=== PATIENT | female | born 1965 | race Two or more races ===

== ENCOUNTER 2017-05-29 11:02 | Inpatient (IN) | payer MEDICARE, OTHER ==
--- NOTE | 2017-05-29 11:17 | C.PDOC ---
History Of Present Illness 51 y/o female with PMHx of IDDM presents to the ER complaining of pain, swelling , redness to right thumb that gradually developed over the last 2 weeks after sustaining puncture injury. Otherwise, Patient denies fever, chills, headache, dizziness, CP, SOB, dsypnea, palpitation, abd. pain, V/D, denies weakness, sensory or vascular deficits to Right hand. Ambulate to Ed for evaluation, not in any apparent distress. Time Seen by Provider: 05/29/17 11:15 Chief Complaint (Nursing): Finger,Hand,&Wrist History Per: Patient History/Exam Limitations: no limitations Onset/Duration Of Symptoms: Days Current Symptoms Are (Timing): Still Present Severity: Moderate Past Medical History Reviewed: Historical Data, Nursing Documentation, Vital Signs Vital Signs: Last Vital Signs Temp 99.2 F 05/29/17 15:24 Pulse 86 05/29/17 15:24 Resp 20 05/29/17 15:24 BP 123/69 05/29/17 15:24 Pulse Ox 98 05/29/17 15:24 - Medical History PMH: Anxiety, Depression, Diabetes, HTN, Hypercholesterolemia, Schizophrenia Denies: Hepatitis, HIV, Chronic Kidney Disease, Seizures, Sexually Transmitted Disease Surgical History: No Surg Hx - [facility] Procedures ENDO RECTUM POLYPECTOMY (06/26/14) Family History: States: No Known Family Hx - Social History Hx Tobacco Use: Yes Hx Alcohol Use: Yes (SOCIALLY) Hx Substance Use: No - Immunization History Hx Tetanus Toxoid Vaccination: No Hx Influenza Vaccination: No Hx Pneumococcal Vaccination: No Review Of Systems Except As Marked, All Systems Reviewed And Found Negative. Constitutional: Positive for: Chills. Negative for: Fever Skin: Positive for: Bruising (right thumb) Neurological: Negative for: Weakness, Numbness Physical Exam - Physical Exam Appears: Non-toxic, No Acute Distress Skin: Normal Color, Warm Head: Normacephalic Eye(s): bilateral: PERRL Nose: No Flaring Oral Mucosa: Moist Throat: No Erythema, No Drooling Neck: Trachea Midline, Supple Chest: Symmetrical Cardiovascular: Rhythm Regular Respiratory: No Accessory Muscle Use, No Stridor, No Wheezing Gastrointestinal/Abdominal: Soft, No Tenderness, No Distention, No Guarding Extremity: Normal ROM (Right hand), Pedal Edema (right first distal phalanx), Capillary Refill (less than 2sec to Right hand), No Deformity, Other (Right thumb diffuse edema, erythema with flactulance over palmar aspect 1st distal pahlanx, (+) purulent material noted. Proximal streakinig extend to Right 1st MCPJ to dorsal asepct Right hand.) Neurological/Psych: Oriented x3, Normal Speech, Normal Cognition, Normal Motor, Normal Sensation, Normal Reflexes ED Course And Treatment - Laboratory Results Result Diagrams: 05/29/17 12:06 05/29/17 12:06 Lab Interpretation: Abnormal O2 Sat by Pulse Oximetry: 98 (RA) Pulse Ox Interpretation: Normal - Other Rad Right hand X-Ray: Viewed By Me, Read By Radiologist Interpretation: PROCEDURE: Right Thumb radiographs. HISTORY: injury, pain r/ o osteo and fx. COMPARISON: None. TECHNIQUE: AP radiograph of the right hand , as well as spot oblique and lateral images of thumb were obtained. FINDINGS: RIGHT THUMB: There is no acute displaced fracture or bone destruction. Remainder of the right hand (as seen on the AP view) grossly unremarkable. JOINTS: Normal. SOFT TISSUES: There is moderate soft tissue swelling in the thumb. OTHER FINDINGS: None. IMPRESSION: Moderate soft tissue swelling in the thumb. No acute fracture or bone destruction. Please note if there is a persistent clinical concern, an MRI may be performed to exclude early osteomyelitis. Progress Note: Pt remained stable during the ED evaluiation. Blood wor review and appears abnoraml, mild leukocytosis with left shift, hypeglycemia. UA (+) ketones. results review with patient and admission offered for further evaluation and tx, pt agrees. Case discussed with med-on-call and admission arranged. Hand surgery notifieda bout consult. marketing services vice president notified about consult and eval pt in ED. Medical Decision Making Medical Decision Making: Impression: [place] in right thumb Plan: --Labs --Urinalysis -- X-Ray - Hand Right Thumb --IV Fluids Disposition - Disposition Disposition: HOSPITALIZED Disposition Time: 13:20 Condition: STABLE - Clinical Impression Clinical Impression: Hyperglycemia due to type 2 diabetes mellitus, Finger pulp abscess, Cellulitis - PA / BOTTOM P[employer] / Resident Statement MD/DO has reviewed & agrees with the documentation as recorded. - Scribe Statement The provider has reviewed the documentation as recorded by the Scribe Summen Ramírez All medical record entries made by the Lincoln were at my direction and personally dictated by me. I have reviewed the chart and agree that the record accurately reflects my personal performance of the history, physical exam, medical decision making, and the department course for this patient. I have also personally directed, reviewed, and agree with the discharge instructions and disposition.
[2017-05-29] MEDS ORDERED: Piperacillin/Tazobact 3.375 GM in Sodium Chloride 100 ML IVPB STA (11:51)
[2017-05-29] MEDS ORDERED: Piperacill/Tazo 3.375gm in Dex 3.375 GM/50 ML BAG IVPB ONE (12:00)
[2017-05-29 12:16] LABS: BASO % 0.2 % (0.0-2.0); HEMATOCRIT 50.3 % (34.0-47.0); LYMPH # 1.1 K/uL (1.0-4.3); LYMPH % 6.3 % (20.0-40.0); MEAN CELL VOLUME 92.7 fL (81.0-99.0); MEAN CORPUSCULAR HEMOGLOBIN 31.6 pg (27.0-31.0); MEAN CORPUSCULAR HGB CONC 34.1 g/dL (33.0-37.0); MEAN PLATELET VOLUME 8.8 fL (7.2-11.7); MONO # 1.3 K/uL (0.0-0.8); MONO % 6.9 % (0.0-10.0); PLATELET COUNT 277 K/uL (130-400); RED CELL DISTRIBUTION WIDTH 13.2 % (11.5-14.5); WHITE BLOOD COUNT 18.1 K/uL (4.8-10.8)
[2017-05-29 12:19] LABS: INR 1.1
--- NOTE | 2017-05-29 12:20 | RAD ---
PROCEDURE: Right Thumb radiographs. HISTORY: injury, pain r/o osteo and fx COMPARISON: None. TECHNIQUE: AP radiograph of the right hand, as well as spot oblique and lateral images of thumb were obtained. FINDINGS: RIGHT THUMB: There is no acute displaced fracture or bone destruction. Remainder of the right hand (as seen on the AP view) grossly unremarkable. JOINTS: Normal. SOFT TISSUES: There is moderate soft tissue swelling in the thumb. OTHER FINDINGS: None. IMPRESSION: Moderate soft tissue swelling in the thumb. No acute fracture or bone destruction. Please note if there is a persistent clinical concern, an MRI may be performed to exclude early osteomyelitis.
[2017-05-29 12:35] LABS: LARGE PLATELETS PRESENT; NEUTROPHIL 90 % (50-75); TOTAL CELLS COUNTED 100
[2017-05-29 12:40] LABS: RBC URINE 3 /hpf (0-3); URINE BACTERIA RARE (<OCC); URINE BILIRUBIN NEGATIVE (NEGATIVE); URINE BLOOD NEGATIVE (NEGATIVE); URINE COLOR Yellow (YELLOW); URINE GLUCOSE (UA) 3+ mg/dL (Normal); URINE KETONE 2+ mg/dL (NEGATIVE); URINE LEUKOCYTE ESTERASE NEG Leu/uL (Negative); URINE PROTEIN 1+ mg/dL (NEGATIVE); URINE UROBILINOGEN NORMAL mg/dL (0.2-1.0); WBC URINE 2 /hpf (0-5)
[2017-05-29 12:42] LABS: ALB/GLOB RATIO 1.3 (1.0-2.1); ALKALINE PHOSPHATASE 104 U/L (38-126); ALT/SGPT 21 U/L (9-52); AST/SGOT 12 U/L (14-36); BILIRUBIN,TOTAL 0.8 mg/dL (0.2-1.3); BLOOD UREA NITROGEN 13 mg/dL (7-17); CALCIUM 9.4 mg/dl (8.6-10.4); CARBON DIOXIDE 20 mmol/L (22-30); CHLORIDE 96 mmol/L (98-107); GFR AFRICAN-AMERICAN > 60; GLUCOSE,RANDOM 427 mg/dL (65-105); SODIUM 132 mmol/L (132-148)
[2017-05-29] MEDS ORDERED: Vancomycin 1 GM in Sodium Chloride 0.9% 200 ML IVPB ONE (13:00)
[2017-05-29] MEDS ORDERED: Sodium Chloride 0.9% 1,000 ML IV ONE ×2 (13:16→16:52)
[2017-05-29] MEDS ORDERED: Potassium Chloride 20 mEq ER Tab PO ONE (14:02)
[2017-05-29] MEDS ORDERED: Lidocaine 2% w Epi 1:100,000 Inj IJ ONE (14:42)
[2017-05-29] MEDS ORDERED: Lidocaine 2% w Epi 1:100,000 Inj IJ STA (15:26)
[2017-05-29 15:27] VITALS: RESP 20
--- NOTE | 2017-05-29 15:29 | CP.PCM.CON ---
History of Present Illness - History of Present Illness History of Present Illness: Plastic Surgery Consult for Dr. Boo This patient is a 51F with DM and HTN who presents with 5 days of finger pain after she jammed her right first digit in the faucet when she was cleaning. She reports that her finger became increasing swollen and red since that time with drainiage. She denies any fevers or chills at home. She denies any loss of senasation however admits to decreaed range of motion about the distal interphalangeal joint. PMH: See above PSH: Social Denies etoh, tobacco, drugs Review of Systems - Review of Systems All systems: reviewed and no additional remarkable complaints except - Musculoskeletal Additional comments: [place] and drainage of her right 1st digit - Neurological Neurological: Burning Sensations, Dizziness, Paresthesias Past Patient History - Infectious Disease Hx of Infectious Diseases: None - Past Medical History & Family History Past Medical History?: Yes - Past Social History Smoking Status: Never Smoked - CARDIAC Hx Hypercholesterolemia: Yes Hx Hypertension: Yes - PULMONARY Hx Tuberculosis: No - NEUROLOGICAL Hx Seizures: No - HEENT Hx HEENT Problems: No - RENAL Hx Chronic Kidney Disease: No - ENDOCRINE/METABOLIC Hx Endocrine Disorders: Yes Hx Diabetes Mellitus Type 2: Yes - HEMATOLOGICAL/ONCOLOGICAL Hx Human Immunodeficiency Virus (HIV): No - INTEGUMENTARY Hx Dermatological Problems: No - MUSCULOSKELETAL/RHEUMATOLOGICAL Hx Musculoskeletal Disorders: No - GASTROINTESTINAL Hx Gastrointestinal Disorders: No - GENITOURINARY/GYNECOLOGICAL Hx Sexually Transmitted Disorders: No - PSYCHIATRIC Hx Anxiety: Yes Hx Depression: Yes Hx Schizophrenia: Yes Hx Substance Use: No - SURGICAL HISTORY Hx Surgeries: Yes Hx Section: Yes - ANESTHESIA Hx Anesthesia: Yes Hx Anesthesia Reactions: No Hx Malignant Hyperthermia: No Meds Allergies/Adverse Reactions: Allergies Allergy/AdvReac Type Severity Reaction Status Date / Time No Known Allergies Allergy Verified 05/29/17 11:10 Physical Exam - Constitutional Appears: Non-toxic - Head Exam Head Exam: ATRAUMATIC, NORMOCEPHALIC - Eye Exam Eye Exam: EOMI - ENT Exam ENT Exam: Mucous Membranes Moist - Respiratory Exam Respiratory Exam: NORMAL BREATHING PATTERN - Cardiovascular Exam Cardiovascular Exam: REGULAR RHYTHM - GI/Abdominal Exam GI & Abdominal Exam: Soft - Expanded Upper Extremities Exam Right Neurosensory exam: ulnar nerve intact - Additional Findings Additional findings: Swollen right thumb with erythema to the base circumstantially. Results - Vital Signs Recent Vital Signs: Last Vital Signs Temp 99.2 F 05/29/17 15:24 Pulse 86 05/29/17 15:24 Resp 20 05/29/17 15:24 BP 123/69 05/29/17 15:24 Pulse Ox 98 05/29/17 15:24 - Labs Result Diagrams: 05/29/17 12:06 05/29/17 12:06 Labs: Laboratory Results - last 24 hr 05/29/17 05/29/17 05/29/17 12:06 12:06 12:06 WBC 18.1 H RBC 5.43 H Hgb 17.1 H Hct 50.3 H MCV 92.7 MCH 31.6 H MCHC 34.1 RDW 13.2 Plt Count 277 MPV 8.8 Neut % (Auto) 86.6 H Lymph % (Auto) 6.3 L [place] % (Auto) 6.9 Eos % (Auto) 0.0 Baso % (Auto) 0.2 Neut # 15.7 H Lymph # 1.1 [place] # 1.3 H Eos # 0.0 Baso # 0.0 Neutrophils % (Manual) 90 H Band Neutrophils % 1 Lymphocytes % (Manual) 5 L Monocytes % (Manual) 4 Platelet Estimate Normal Large Platelets Present Polychromasia Slight Anisocytosis (manual) Slight PT 12.7 H INR 1.1 APTT 24 Sodium 132 Potassium 4.0 Chloride 96 L Carbon Dioxide 20 L Anion Gap 20 BUN 13 Creatinine 0.6 L Est GFR ( Amer) > 60 Est GFR (Non-Af Amer) > 60 Random Glucose 427 H* Calcium 9.4 Total Bilirubin 0.8 AST 12 L ALT 21 Alkaline Phosphatase 104 Total Creatine Kinase 55 Total Protein 8.0 Albumin 4.5 Globulin 3.5 Albumin/Globulin Ratio 1.3 Urine Color Urine Clarity Urine pH Ur Specific [place] Urine Protein Urine Glucose (UA) Urine Ketones Urine Blood Urine Nitrate Urine Bilirubin Urine Urobilinogen Ur Leukocyte Esterase Urine WBC (Auto) Urine RBC (Auto) Ur Squamous Epith Cells Urine Bacteria 05/29/17 12:17 WBC RBC Hgb Hct MCV MCH MCHC RDW Plt Count MPV Neut % (Auto) Lymph % (Auto) [place] % (Auto) Eos % (Auto) Baso % (Auto) Neut # Lymph # [place] # Eos # Baso # Neutrophils % (Manual) Band Neutrophils % Lymphocytes % (Manual) Monocytes % (Manual) Platelet Estimate Large Platelets Polychromasia Anisocytosis (manual) PT INR APTT Sodium Potassium Chloride Carbon Dioxide Anion Gap BUN Creatinine Est GFR ( Amer) Est GFR (Non-Af Amer) Random Glucose Calcium Total Bilirubin AST ALT Alkaline Phosphatase Total Creatine Kinase Total Protein Albumin Globulin Albumin/Globulin Ratio Urine Color Yellow Urine Clarity Clear Urine pH 5.0 Ur Specific [place] 1.032 H Urine Protein 1+ H Urine Glucose (UA) 3+ H Urine Ketones 2+ H Urine Blood Negative Urine Nitrate Negative Urine Bilirubin Negative Urine Urobilinogen Normal Ur Leukocyte Esterase Neg Urine WBC (Auto) 2 Urine RBC (Auto) 3 Ur Squamous Epith Cells 1 Urine Bacteria Rare Assessment & Plan - Assessment and Plan (Free Text) Assessment: 51F with right 1st dgit felon Bedside incision and drainage with iodoform packing IV antibiotics Daily packing changes Medical care per primary team Will re-evaluate in AM D/W Dr. Ema Vásquez PGY2
--- NOTE | 2017-05-29 15:37 | PCM.SURG1 ---
Surgeon's Initial Post Op Note - Surgeon's Notes Surgeon: Dr. Boo Automatic Mounter: Dr. Vásquez Type of Anesthesia: Block Regional Pre-Operative Diagnosis: Right first digit felon Operative Findings: Right first digit felon Post-Operative Diagnosis: Right first digit felon Operation Performed: Inscision and drainage Specimen/Specimens Removed: None Estimated Blood Loss: EBL {In ML}: 2 Blood Products Given: N/A Drains Used: No Drains Post-Op Condition: Good Date of Surgery/Procedure: 05/29/17 Time of Surgery/Procedure: 15:36
[2017-05-29] MEDS ORDERED: (Novolog) Insulin Aspart, Recombinant 100 u/ml 10 ml vial SC STA (17:07)
[2017-05-29] MEDS ORDERED: (Novolin R) Insulin Human Regular 100 units/ml vial ONE (17:23)
[2017-05-29] MEDS: (Novolog) Insulin Aspart, Recombinant 100 u/ml 10 ml vial SC SCH (21:50)
[2017-05-30] MEDS: Piperacill/Tazo 3.375gm in Dex 3.375 GM/50 ML BAG IVPB SCH ×4 (04:23→22:24)
--- NOTE | 2017-05-30 08:06 | CP.PCM.PN ---
Subjective - Date & Time of Evaluation Date of Evaluation: 05/30/17 Time of Evaluation: 07:10 - Subjective Subjective: Hand Surgery Dr. Boo Pt S&E @bedside. HERIBERTO. Pt c/o pain in finger. denies F/C, N/V, decreased ROM in finger, numbness/tingling. tolerating diet. Objective - Vital Signs/Intake and Output Vital Signs (last 24 hours): Temp Pulse Resp BP Pulse Ox 98.7 F 84 20 119/69 97 05/30/17 07:56 05/30/17 07:56 05/30/17 07:56 05/30/17 07:56 05/30/17 07:56 Intake and Output: 05/30/17 05/30/17 06:59 18:59 Intake Total 150 Balance 150 - Medications Medications: Current Medications Acetaminophen (Tylenol 325mg Tab) 650 mg PO Q4 PRN PRN Reason: Pain, Mild (1-3) Clonazepam (Klonopin) 10 mg PO HS [facility] Enoxaparin Sodium (Lovenox) 40 mg SC DAILY [facility] Vancomycin/Sodium Chloride (Vancomycin 1 Gm/Ns 200 Ml) 1 gm in 200 mls @ 133.333 mls/hr IVPB Q12H [facility] Stop: 06/04/17 10:01 Piperacillin Sod/Tazobactam Sod (Zosyn 3.375 Gm Iv Premix) 3.375 gm in 50 mls @ 100 mls/hr IVPB Q6H [facility] Last Admin: 05/30/17 04:23 Dose: 100 mls/hr Insulin Aspart (Novolog) 0 unit SC ACHS [facility] PRN Reason: Protocol Last Admin: 05/29/17 21:50 Dose: 2 unit Metformin HCl (Glucophage) 500 mg PO BID [facility] Risperidone (Risperdal Tab) 3 mg PO HS [facility] Last Admin: 05/29/17 22:46 Dose: 3 mg Rosuvastatin Calcium (Crestor) 5 mg PO HS [facility] - Labs Labs: 05/29/17 12:06 05/29/17 12:06 PT 12.7 SECONDS (9.7-12.2) H 05/29/17 12:06 INR 1.1 05/29/17 12:06 APTT 24 SECONDS (21-34) 05/29/17 12:06 - Constitutional Appears: Non-toxic, No Acute Distress - Head Exam Head Exam: NORMAL INSPECTION - Eye Exam Eye Exam: Normal appearance - ENT Exam ENT Exam: Mucous Membranes Moist - Respiratory Exam Respiratory Exam: NORMAL BREATHING PATTERN. absent: Accessory Muscle Use, Respiratory Distress - Cardiovascular Exam Cardiovascular Exam: absent: Bradycardia, Tachycardia - Extremities Exam Additional comments: R thumb dressing c/d/i - Neurological Exam Neurological Exam: Alert, Awake, Oriented x3 - Psychiatric Exam Psychiatric exam: Normal Affect, Normal Mood - Skin Skin Exam: Dry, Normal Color, Warm Assessment and Plan - Assessment and Plan (Free Text) Assessment: 51 y/o F w/ Felon of 1st digit - pain management - cont IV Abx - packing and dressing change later today - cont medical management Pt discussed w/ Dr. Ema Arana DO PGY2
[2017-05-30] MEDS: (Novolog) Insulin Aspart, Recombinant 100 u/ml 10 ml vial SC SCH ×4 (08:13→22:00)
[2017-05-30 09:08] LABS: HEMATOCRIT 43.8 % (34.0-47.0); MEAN CELL VOLUME 93.6 fL (81.0-99.0); MEAN CORPUSCULAR HEMOGLOBIN 31.9 pg (27.0-31.0); MEAN CORPUSCULAR HGB CONC 34.1 g/dL (33.0-37.0); MEAN PLATELET VOLUME 9.2 fL (7.2-11.7); RED CELL DISTRIBUTION WIDTH 13.7 % (11.5-14.5)
[2017-05-30] MEDS: Enoxaparin 40 mg Syringe SC SCH (09:08)
[2017-05-30 09:10] LABS: WHITE BLOOD COUNT 8.6 K/uL (4.8-10.8)
[2017-05-30] MEDS ORDERED: Vancomycin 1 gm/NS 200 ml 1 GM/200 ML BAG IVPB SCH (10:00)
[2017-05-30] MEDS ORDERED: Piperacill/Tazo 3.375gm in Dex 3.375 GM/50 ML BAG IVPB SCH (10:00)
[2017-05-30] MEDS: Vancomycin 1 GM in Sodium Chloride 0.9% 200 ML IVPB SCH (12:29)
[2017-05-30] MEDS: (Novolog Mix 70/30) Insulin Aspart/Insulin Aspar 100 units/ml SC SCH (18:20)
[2017-05-31] MEDS: Vancomycin 1 GM in Sodium Chloride 0.9% 200 ML IVPB SCH ×2 (00:18→11:53)
[2017-05-31] MEDS: Piperacill/Tazo 3.375gm in Dex 3.375 GM/50 ML BAG IVPB SCH ×4 (03:20→22:15)
[2017-05-31] MEDS: (Novolog) Insulin Aspart, Recombinant 100 u/ml 10 ml vial SC SCH ×4 (07:56→22:10)
--- NOTE | 2017-05-31 08:05 | CP.PCM.PN ---
Subjective - Date & Time of Evaluation Date of Evaluation: 05/31/17 Time of Evaluation: 07:00 - Subjective Subjective: Hand Surgery Dr. Boo Pt S&E @bedside. NAEO. pt reports decreased swelling, stating that it feels less inflamed. Pt denies F/C, N/V. Tolerating diet. Pain controlled w/ medication Objective - Vital Signs/Intake and Output Vital Signs (last 24 hours): Temp Pulse Resp BP Pulse Ox 97.5 F L 84 20 137/88 96 05/31/17 07:49 05/31/17 07:49 05/31/17 07:49 05/31/17 07:49 05/31/17 07:49 Intake and Output: 05/31/17 05/31/17 06:59 18:59 Intake Total 490 Balance 490 - Medications Medications: Current Medications Acetaminophen (Tylenol 325mg Tab) 650 mg PO Q4 PRN PRN Reason: Pain, Mild (1-3) Last Admin: 05/30/17 09:08 Dose: 650 mg Clonazepam (Klonopin) 1 mg PO HS PRN PRN Reason: Anxiety Enoxaparin Sodium (Lovenox) 40 mg SC DAILY [facility] Last Admin: 05/30/17 09:08 Dose: 40 mg Hydromorphone HCl (Dilaudid) 0.5 mg IVP Q4H PRN PRN Reason: Pain, moderate (4-7) Hydromorphone HCl (Dilaudid) 1 mg IVP Q4H PRN PRN Reason: Pain, severe (8-10) Last Admin: 05/31/17 06:56 Dose: 1 mg Piperacillin Sod/Tazobactam Sod (Zosyn 3.375 Gm Iv Premix) 3.375 gm in 50 mls @ 100 mls/hr IVPB Q6H [facility] Last Admin: 05/31/17 03:20 Dose: 100 mls/hr Vancomycin HCl 1 gm/ Sodium (Chloride) 200 mls @ 133.333 mls/hr IVPB Q12H [facility] Stop: 06/04/17 12:01 Last Admin: 05/31/17 00:18 Dose: 133.333 mls/hr Insulin Aspart (Novolog) 0 unit SC ACHS [facility] PRN Reason: Protocol Last Admin: 05/31/17 07:56 Dose: 4 unit Insulin Aspart (Novolog Mix 70/30 (70/30 Units/Ml)) 12 units SC BID [facility] Last Admin: 05/30/17 18:20 Dose: 12 units Metformin HCl (Glucophage) 500 mg PO BID [facility] Last Admin: 05/30/17 18:20 Dose: 500 mg Paroxetine HCl (Paxil) 10 mg PO DAILY [facility] Last Admin: 05/30/17 13:39 Dose: 10 mg Risperidone (Risperdal Tab) 1 mg PO [facility] Last Admin: 05/30/17 22:32 Dose: 1 mg Rosuvastatin Calcium (Crestor) 5 mg PO HS [facility] Last Admin: 05/30/17 22:14 Dose: 5 mg - Labs Labs: 05/30/17 09:05 05/29/17 12:06 PT 12.7 SECONDS (9.7-12.2) H 05/29/17 12:06 INR 1.1 05/29/17 12:06 APTT 24 SECONDS (21-34) 05/29/17 12:06 - Constitutional Appears: Non-toxic, No Acute Distress - Head Exam Head Exam: NORMAL INSPECTION - Eye Exam Eye Exam: Normal appearance - ENT Exam ENT Exam: Mucous Membranes Moist - Respiratory Exam Respiratory Exam: NORMAL BREATHING PATTERN. absent: Accessory Muscle Use, Respiratory Distress - Cardiovascular Exam Cardiovascular Exam: absent: Bradycardia, Tachycardia - Extremities Exam Additional comments: dressing stained. edematous superficial epidermis pulp pink purulent drainage present - Neurological Exam Neurological Exam: Alert, Awake, Oriented x3 - Psychiatric Exam Psychiatric exam: Normal Affect, Normal Mood - Skin Skin Exam: Dry, Warm Assessment and Plan - Assessment and Plan (Free Text) Assessment: 51 y/o F w/ Felon of 1st digit s/p Bedside I&D - f/u wound Cx - cont pain management - cont IV Abx - dressing changes PRN - cont medical management Pt discussed w/ Dr. Ema Arana DO PGY2
[2017-05-31] MEDS: (Novolog Mix 70/30) Insulin Aspart/Insulin Aspar 100 units/ml SC SCH ×2 (09:15→18:00)
[2017-05-31] MEDS: Enoxaparin 40 mg Syringe SC SCH (09:15)
--- NOTE | 2017-05-31 23:15 | CP.PCM.HP ---
History of Present Illness - History of Present Illness History of Present Illness: CC: abscess of right thumb HPI: This patient is a 51F with DM and HTN who presents with 5 days of finger pain after she jammed her right first digit in the faucet when she was cleaning. She reports that her finger became increasing swollen and red since that time with drainiage. She denies any fevers or chills at home. She denies any loss of senasation however admits to decreaed range of motion about the distal interphalangeal joint. Pt is diabetic and non complaint with diet, medication and follow up. pt came in with high blood sugars PMH: See above PSH: Social Denies etoh, tobacco, drugs Present on Admission - Present on Admission Any Indicators Present on Admission: Yes History of Uncontrolled Diabetes: Yes Review of Systems - Review of Systems Systems not reviewed;Unavailable: Acuity of Condition - Constitutional Constitutional: Fatigue, Lethargy, Malaise - EENT Eyes: absent: As Per HPI, Blind Spots, Blurred Vision, Change in Vision, Decreased Night Vision, Diplopia, Discharge, Dry Eye, Exophthalmos, Floaters, Irritation, Itchy Eyes, Loss of Peripheral Vision, Pain, Photophobia, Requires Corrective Lenses, Sees Flashes, Spots in Vision, Tunnel Vision, Other Visual Disturbances, Loss of Vision, Other Nose/Mouth/Throat: absent: As Per HPI, Epistaxis, Nasal Congestion, Nasal Discharge, Nasal Obstruction, Nasal Trauma, Nose Pain, Post Nasal Drip, Sinus Pain, Sinus Pressure, Bleeding Gums, Change in Voice, Dental Pain, Dry Mouth, Dysphagia, Halitosis, Hoarsness, Lip Swelling, Mouth Lesions, Mouth Pain, Odynophagia, Sore Throat, Throat Swelling, Tongue Swelling, Facial Pain, Neck Pain, Neck Mass, Other - Cardiovascular Cardiovascular: absent: As Per HPI, Acrocyanosis, Chest Pain, Chest Pain at Rest , Chest Pain with Activity, Claudication, Diaphoresis, Dyspnea, Dyspnea on Exertion, Edema, Irregular Heart Rhythm, Pain Radiating to Arm/Neck/Jaw, Leg Edema, Leg Ulcers, Lightheadedness, Orthopnea, Palpitations, Paroxysmal Nocturnal Dyspnea, Pedal Edema, Radiating Pain, Rapid Heart Rate, Slow Heart Rate, Syncope, Other - Respiratory Respiratory: absent: As Per HPI, Cough, Dyspnea, Hemoptysis, Dyspnea on Exertion , Wheezing, Snoring, Stridor, Pain on Inspiration, Chest Congestion, Excessive Mucous Production, Change in Mucous Color, Pain with Coughing, Other - Gastrointestinal Gastrointestinal: absent: As Per HPI, Abdominal Pain, Belching, Bloating, Change in Bowel Habits, Change in Stool Character, Coffee Ground Emesis, Constipation, Cramping, Diarrhea, Dyspepsia, Dysphagia, Early Satiety, Excessive Flatus, Fecal Incontinence, Heartburn, Hematemesis, Hematochezia, Loose Stools, Melena, Nausea, Odynophagia, Temesmus, Vomiting, Other - Genitourinary Genitourinary: Urinary Frequency - Reproductive: Female Reproductive:Female: absent: As Per HPI, Amenorrhea, Amenorrhea/ Control, Currently Menstual, Cycle <21 Days, Cycle >35 Days, Cycle Variable, Menses 1-7 Days, Menses >/= 8 Days, Menses Variable, Cycle > 4 Weeks Between, No Menses for 6 Months, Heavy Menses, Light Menses, Normal Menses, Spotting Between Cycles , S/P Hysterectomy, Menopausal, Post Menopausal, Premenarche, Abnormal Vaginal Bleeding, Dysmenorrhea, Dyspareunia, Genital Lesions, Genital Pruritis, Pelvic Pain, Prolapse Symptoms, Sexual Dysfunction, Vaginal Discharge, Vaginal Dryness , Vaginal Odor, Vaginal Pruritis, Other - Integumentary Integumentary: Swelling Additional comments: abcsess of right thumb - Endocrine Endocrine: Fatigue, Palpitations, Polydipsia, Polyphagia Past Patient History - Infectious Disease Hx of Infectious Diseases: None - Past Medical History & Family History Past Medical History?: Yes - Past Social History Smoking Status: Current Some Days Smoker - CARDIAC Hx Hypercholesterolemia: Yes Hx Hypertension: Yes - PULMONARY Hx Tuberculosis: No - NEUROLOGICAL Hx Seizures: No - HEENT Hx HEENT Problems: No - RENAL Hx Chronic Kidney Disease: No - ENDOCRINE/METABOLIC Hx Endocrine Disorders: Yes Hx Diabetes Mellitus Type 2: Yes - HEMATOLOGICAL/ONCOLOGICAL Hx Human Immunodeficiency Virus (HIV): No - INTEGUMENTARY Hx Dermatological Problems: No - MUSCULOSKELETAL/RHEUMATOLOGICAL Hx Musculoskeletal Disorders: No Hx Falls: No - GASTROINTESTINAL Hx Gastrointestinal Disorders: No - GENITOURINARY/GYNECOLOGICAL Hx Sexually Transmitted Disorders: No - PSYCHIATRIC Hx Anxiety: Yes Hx Depression: Yes Hx Schizophrenia: Yes Hx Substance Use: No - SURGICAL HISTORY Hx Surgeries: Yes Hx Section: Yes - ANESTHESIA Hx Anesthesia: Yes Hx Anesthesia Reactions: No Hx Malignant Hyperthermia: No Has any member of the family had a problem w/ anesthesia?: No Meds Allergies/Adverse Reactions: Allergies Allergy/AdvReac Type Severity Reaction Status Date / Time No Known Allergies Allergy Verified 05/29/17 11:10 Physical Exam - Constitutional Appears: No Acute Distress - Eye Exam Eye Exam: EOMI, Normal appearance, PERRL Pupil Exam: NORMAL ACCOMODATION, PERRL - Respiratory Exam Respiratory Exam: Clear to Auscultation Bilateral, NORMAL BREATHING PATTERN - Cardiovascular Exam Cardiovascular Exam: REGULAR RHYTHM - GI/Abdominal Exam GI & Abdominal Exam: Normal Bowel Sounds, Soft. absent: Tenderness - Neurological Exam Neurological exam: Alert, CN II-XII Intact, Normal Gait, Oriented x3, Reflexes Normal - Skin Skin Exam: Vesicles, Warm Results - Vital Signs Recent Vital Signs: Last Vital Signs Temp 99 F 05/31/17 15:00 Pulse 71 05/31/17 15:00 Resp 20 05/31/17 15:00 BP 134/81 05/31/17 15:00 Pulse Ox 96 05/31/17 15:00 - Labs Result Diagrams: 05/30/17 09:05 05/29/17 12:06 Labs: Laboratory Results - last 24 hr 05/31/17 05/31/17 05/31/17 07:23 10:59 16:17 POC Glucose (mg/dL) 274 H 317 H 197 H Assessment & Plan (1) Cellulitis Status: Acute (2) Finger pulp abscess Assessment and Plan: for I and D Status: Acute (3) Hyperglycemia due to type 2 diabetes mellitus Status: Acute (4) Anxiety Status: Acute
[2017-06-01] MEDS: Vancomycin 1 GM in Sodium Chloride 0.9% 200 ML IVPB SCH (00:03)
--- NOTE | 2017-06-01 00:14 | CP.PCM.PN ---
Subjective - Date & Time of Evaluation Date of Evaluation: 05/31/17 Time of Evaluation: 20:40 - Subjective Subjective: Pt seen and evalauted at bedside, s/p I and D of right thumb, pt reports decreased swelling, stating that it feels less inflamed. Pt denies F/C, N/V. Tolerating diet. Pain controlled w/ medication Objective - Vital Signs/Intake and Output Vital Signs (last 24 hours): Temp Pulse Resp BP Pulse Ox 99 F 71 20 134/81 96 05/31/17 15:00 05/31/17 15:00 05/31/17 15:00 05/31/17 15:00 05/31/17 15:00 Intake and Output: 05/31/17 06/01/17 18:59 06:59 Intake Total 400 Balance 400 - Medications Medications: Current Medications Acetaminophen (Tylenol 325mg Tab) 650 mg PO Q4 PRN PRN Reason: Pain, Mild (1-3) Last Admin: 05/30/17 09:08 Dose: 650 mg Clonazepam (Klonopin) 1 mg PO HS PRN PRN Reason: Anxiety Enoxaparin Sodium (Lovenox) 40 mg SC DAILY [facility] Last Admin: 05/31/17 09:15 Dose: 40 mg Hydromorphone HCl (Dilaudid) 0.5 mg IVP Q4H PRN PRN Reason: Pain, severe (8-10) Last Admin: 05/31/17 17:50 Dose: 0.5 mg Piperacillin Sod/Tazobactam Sod (Zosyn 3.375 Gm Iv Premix) 3.375 gm in 50 mls @ 100 mls/hr IVPB Q6H [facility] Last Admin: 05/31/17 22:15 Dose: 100 mls/hr Vancomycin HCl 1 gm/ Sodium (Chloride) 200 mls @ 133.333 mls/hr IVPB Q12H [facility] Stop: 06/04/17 12:01 Last Admin: 05/31/17 11:53 Dose: 133.333 mls/hr Insulin Aspart (Novolog) 0 unit SC ACHS [facility] PRN Reason: Protocol Last Admin: 05/31/17 22:10 Dose: 2 unit Insulin Aspart (Novolog Mix 70/30 (70/30 Units/Ml)) 12 units SC BID [facility] Last Admin: 05/31/17 18:00 Dose: 12 units Metformin HCl (Glucophage) 500 mg PO BID [facility] Last Admin: 05/31/17 17:46 Dose: 500 mg Oxycodone/Acetaminophen (Percocet 5/325 Mg Tab) 1 tab PO Q4H PRN PRN Reason: Pain, moderate (4-7) Stop: 06/03/17 08:06 Paroxetine HCl (Paxil) 10 mg PO DAILY [facility] Last Admin: 05/31/17 09:14 Dose: 10 mg Risperidone (Risperdal Tab) 1 mg PO HS [facility] Last Admin: 05/31/17 22:07 Dose: 1 mg Rosuvastatin Calcium (Crestor) 5 mg PO HS [facility] Last Admin: 05/31/17 22:07 Dose: 5 mg - Labs Labs: 05/30/17 09:05 05/29/17 12:06 PT 12.7 SECONDS (9.7-12.2) H 05/29/17 12:06 INR 1.1 05/29/17 12:06 APTT 24 SECONDS (21-34) 05/29/17 12:06 - Constitutional Appears: No Acute Distress - Head Exam Head Exam: ATRAUMATIC, NORMAL INSPECTION, NORMOCEPHALIC - Eye Exam Eye Exam: EOMI, Normal appearance, PERRL Pupil Exam: NORMAL ACCOMODATION, PERRL - Respiratory Exam Respiratory Exam: Clear to Ausculation Bilateral, NORMAL BREATHING PATTERN - Cardiovascular Exam Cardiovascular Exam: REGULAR RHYTHM, +S1, +S2. absent: Murmur - GI/Abdominal Exam GI & Abdominal Exam: Soft, Normal Bowel Sounds. absent: Tenderness - Rectal Exam Rectal Exam: Deferred - Extremities Exam Additional comments: Right thumb on exam dressing stained. edematous superficial epidermis pulp pink purulent drainage present Assessment and Plan (1) Cellulitis Status: Acute (2) Finger pulp abscess Status: Acute (3) Hyperglycemia due to type 2 diabetes mellitus Status: Acute (4) Anxiety Status: Acute
[2017-06-01] MEDS: Piperacill/Tazo 3.375gm in Dex 3.375 GM/50 ML BAG IVPB SCH ×4 (04:04→21:33)
[2017-06-01 07:43] LABS: HEMATOCRIT 44.8 % (34.0-47.0); MEAN CELL VOLUME 93.4 fL (81.0-99.0); MEAN CORPUSCULAR HGB CONC 34.2 g/dL (33.0-37.0); MEAN PLATELET VOLUME 8.7 fL (7.2-11.7); RED CELL DISTRIBUTION WIDTH 13.2 % (11.5-14.5); WHITE BLOOD COUNT 7.6 K/uL (4.8-10.8)
--- NOTE | 2017-06-01 08:30 | CP.PCM.PN ---
Subjective - Date & Time of Evaluation Date of Evaluation: 06/01/17 Time of Evaluation: 06:45 - Subjective Subjective: Hand Surgery Dr. Boo Pt S&E @bedside. NAEO. Pt reports improved pain in R hand but continued pain in R thumb. Pt denies numbness/tingling. Pt continues to have full ROM. Pt denies F /C, N/V. Tolerating diet. Objective - Vital Signs/Intake and Output Vital Signs (last 24 hours): Temp Pulse Resp BP Pulse Ox 97.9 F 82 20 123/77 96 06/01/17 07:31 06/01/17 07:31 06/01/17 07:31 06/01/17 07:31 06/01/17 07:31 Intake and Output: 06/01/17 06/01/17 06:59 18:59 Intake Total 800 Balance 800 - Medications Medications: Current Medications Acetaminophen (Tylenol 325mg Tab) 650 mg PO Q4 PRN PRN Reason: Pain, Mild (1-3) Last Admin: 05/30/17 09:08 Dose: 650 mg Clonazepam (Klonopin) 1 mg PO HS PRN PRN Reason: Anxiety Enoxaparin Sodium (Lovenox) 40 mg SC DAILY [facility] Last Admin: 05/31/17 09:15 Dose: 40 mg Hydromorphone HCl (Dilaudid) 0.5 mg IVP Q4H PRN PRN Reason: Pain, severe (8-10) Last Admin: 06/01/17 07:08 Dose: 0.5 mg Piperacillin Sod/Tazobactam Sod (Zosyn 3.375 Gm Iv Premix) 3.375 gm in 50 mls @ 100 mls/hr IVPB Q6H [facility] Last Admin: 06/01/17 04:04 Dose: 100 mls/hr Vancomycin/Sodium Chloride (Vancomycin 1 Gm/Ns 200 Ml) 1 gm in 200 mls @ 133.333 mls/hr IVPB Q12H [facility] Stop: 06/06/17 12:01 Insulin Aspart (Novolog) 0 unit SC ACHS [facility] PRN Reason: Protocol Last Admin: 05/31/17 22:10 Dose: 2 unit Insulin Aspart (Novolog Mix 70/30 (70/30 Units/Ml)) 12 units SC BID [facility] Last Admin: 05/31/17 18:00 Dose: 12 units Metformin HCl (Glucophage) 500 mg PO BID [facility] Last Admin: 05/31/17 17:46 Dose: 500 mg Oxycodone/Acetaminophen (Percocet 5/325 Mg Tab) 1 tab PO Q4H PRN PRN Reason: Pain, moderate (4-7) Stop: 06/03/17 08:06 Paroxetine HCl (Paxil) 10 mg PO DAILY [facility] Last Admin: 05/31/17 09:14 Dose: 10 mg Risperidone (Risperdal Tab) 1 mg PO HS [facility] Last Admin: 05/31/17 22:07 Dose: 1 mg Rosuvastatin Calcium (Crestor) 5 mg PO HS [facility] Last Admin: 05/31/17 22:07 Dose: 5 mg - Labs Labs: 06/01/17 07:29 05/29/17 12:06 PT 12.7 SECONDS (9.7-12.2) H 05/29/17 12:06 INR 1.1 05/29/17 12:06 APTT 24 SECONDS (21-34) 05/29/17 12:06 - Constitutional Appears: Non-toxic, No Acute Distress - Head Exam Head Exam: NORMAL INSPECTION - Eye Exam Eye Exam: Normal appearance - ENT Exam ENT Exam: Mucous Membranes Moist - Respiratory Exam Respiratory Exam: NORMAL BREATHING PATTERN. absent: Accessory Muscle Use, Respiratory Distress - Extremities Exam Additional comments: R thumb w/ pink granulation tissue flap appears avascular - Neurological Exam Neurological Exam: Alert, Awake, Oriented x3 - Psychiatric Exam Psychiatric exam: Normal Affect, Normal Mood - Skin Skin Exam: Dry, Warm Assessment and Plan - Assessment and Plan (Free Text) Assessment: 51 y/o F s/p R thumb I&D of felon - cont IV Abx - recommend warm betadine soaks TID - daily dressing changes PRN - cont pain management - Pt cleared for discharge pending approval for visiting home service vs daily visits to wound care clinic @[facility] - Pt should follow up w/ Dr. Boo in 7-10 days. Pt discussed w/ Dr. Ema Arana DO PGY2
[2017-06-01] MEDS: (Novolog) Insulin Aspart, Recombinant 100 u/ml 10 ml vial SC SCH ×4 (08:47→21:37)
[2017-06-01] MEDS: (Novolog Mix 70/30) Insulin Aspart/Insulin Aspar 100 units/ml SC SCH ×2 (09:52→18:13)
[2017-06-01] MEDS: Enoxaparin 40 mg Syringe SC SCH (09:53)
[2017-06-01] MEDS: Oxycodone/Acetaminophen 5/325 mg Tab PO PRN ×2 (10:02→18:16)
[2017-06-01] MEDS: Vancomycin 1 gm/NS 200 ml 1 GM/200 ML BAG IVPB SCH (12:29)
--- NOTE | 2017-06-01 19:30 | CP.PCM.PN ---
Subjective - Date & Time of Evaluation Date of Evaluation: 06/01/17 Time of Evaluation: 19:00 - Subjective Subjective: Pt was seen and evaluated at bedside, Pt reports improved pain in R hand but continued pain in R thumb. Pt denies numbness/tingling. Pt continues to have full ROM. Pt denies F/C, N/V. Tolerating diet. Objective - Vital Signs/Intake and Output Vital Signs (last 24 hours): Temp Pulse Resp BP Pulse Ox 97.4 F L 79 20 122/77 96 06/01/17 15:00 06/01/17 15:00 06/01/17 15:00 06/01/17 15:00 06/01/17 15:00 Intake and Output: 06/01/17 06/02/17 18:59 06:59 Intake Total 850 Balance 850 - Medications Medications: Current Medications Acetaminophen (Tylenol 325mg Tab) 650 mg PO Q4 PRN PRN Reason: Pain, Mild (1-3) Last Admin: 05/30/17 09:08 Dose: 650 mg Clonazepam (Klonopin) 1 mg PO HS PRN PRN Reason: Anxiety Enoxaparin Sodium (Lovenox) 40 mg SC DAILY [facility] Last Admin: 06/01/17 09:53 Dose: 40 mg Hydromorphone HCl (Dilaudid) 0.5 mg IVP Q4H PRN PRN Reason: Pain, severe (8-10) Last Admin: 06/01/17 07:08 Dose: 0.5 mg Piperacillin Sod/Tazobactam Sod (Zosyn 3.375 Gm Iv Premix) 3.375 gm in 50 mls @ 100 mls/hr IVPB Q6H [facility] Last Admin: 06/01/17 16:10 Dose: 100 mls/hr Vancomycin/Sodium Chloride (Vancomycin 1 Gm/Ns 200 Ml) 1 gm in 200 mls @ 133.333 mls/hr IVPB Q12H [facility] Stop: 06/06/17 12:01 Last Admin: 06/01/17 12:29 Dose: 133.333 mls/hr Insulin Aspart (Novolog) 0 unit SC ACHS [facility] PRN Reason: Protocol Last Admin: 06/01/17 18:13 Dose: 3 unit Insulin Aspart (Novolog Mix 70/30 (70/30 Units/Ml)) 16 units SC BID [facility] Last Admin: 06/01/17 18:13 Dose: 16 units Metformin HCl (Glucophage) 500 mg PO BID [facility] Last Admin: 06/01/17 18:15 Dose: 500 mg Oxycodone/Acetaminophen (Percocet 5/325 Mg Tab) 1 tab PO Q4H PRN PRN Reason: Pain, moderate (4-7) Stop: 06/03/17 08:06 Last Admin: 06/01/17 18:16 Dose: 1 tab Paroxetine HCl (Paxil) 10 mg PO DAILY [facility] Last Admin: 06/01/17 09:52 Dose: 10 mg Risperidone (Risperdal Tab) 1 mg PO HS [facility] Last Admin: 05/31/17 22:07 Dose: 1 mg Rosuvastatin Calcium (Crestor) 5 mg PO HS [facility] Last Admin: 05/31/17 22:07 Dose: 5 mg - Labs Labs: 06/01/17 07:29 05/29/17 12:06 PT 12.7 SECONDS (9.7-12.2) H 05/29/17 12:06 INR 1.1 05/29/17 12:06 APTT 24 SECONDS (21-34) 05/29/17 12:06 Assessment and Plan (1) Cellulitis Status: Acute (2) Finger pulp abscess Status: Acute (3) Hyperglycemia due to type 2 diabetes mellitus Status: Acute (4) Anxiety Status: Acute
[2017-06-02] MEDS: Piperacill/Tazo 3.375gm in Dex 3.375 GM/50 ML BAG IVPB SCH ×3 (04:04→17:05)
[2017-06-02 06:23] LABS: BASO # 0.1 K/uL (0.0-0.2); BASO % 1.4 % (0.0-2.0); EOS # 0.1 K/uL (0.0-0.7); EOS % 0.8 % (0.0-4.0); HEMATOCRIT 44.1 % (34.0-47.0); LYMPH # 1.9 K/uL (1.0-4.3); LYMPH % 22.8 % (20.0-40.0); MEAN CELL VOLUME 93.2 fL (81.0-99.0); MEAN CORPUSCULAR HEMOGLOBIN 31.5 pg (27.0-31.0); MEAN CORPUSCULAR HGB CONC 33.8 g/dL (33.0-37.0); MEAN PLATELET VOLUME 8.3 fL (7.2-11.7); MONO # 0.9 K/uL (0.0-0.8); MONO % 10.2 % (0.0-10.0); RED CELL DISTRIBUTION WIDTH 13.1 % (11.5-14.5); WHITE BLOOD COUNT 8.5 K/uL (4.8-10.8)
[2017-06-02] MEDS: (Novolog) Insulin Aspart, Recombinant 100 u/ml 10 ml vial SC SCH ×3 (07:50→16:58)
[2017-06-02 08:05] LABS: BLOOD UREA NITROGEN 13 mg/dL (7-17); CALCIUM 8.5 mg/dl (8.6-10.4); CARBON DIOXIDE 25 mmol/L (22-30); CHLORIDE 99 mmol/L (98-107); GFR AFRICAN-AMERICAN > 60; GLUCOSE,RANDOM 246 mg/dL (65-105); POTASSIUM 3.9 mmol/L (3.6-5.2); SODIUM 131 mmol/L (132-148)
[2017-06-02] MEDS: (Novolog Mix 70/30) Insulin Aspart/Insulin Aspar 100 units/ml SC SCH ×2 (09:17→17:04)
[2017-06-02] MEDS: Enoxaparin 40 mg Syringe SC SCH (10:46)
[2017-06-02] MEDS: Vancomycin 1 gm/NS 200 ml 1 GM/200 ML BAG IVPB SCH ×2 (11:59)
--- NOTE | 2017-06-02 14:46 | CP.PCM.PN ---
Subjective - Date & Time of Evaluation Date of Evaluation: 06/02/17 Time of Evaluation: 14:46 - Subjective Subjective: PT CLEARED FOR D/C BY HAND SURGICAL TEAM AND DR. KOLB. CALL CENTRE SUPERVISOR SAW PT AND CLEANED WOUND TO RT THUMB, REDRESSED THUMB. CONFIRMED HOME MEDS WITH PT AND SHE DOES TAKE INSULIN AND HAS BEEN TAKING LANTUS 26 UNITS SQ Q12 AND IS COMFORTABLE GIVING HERSELF INSULIN. CALL CENTRE SUPERVISOR HAD LENGTHY DISCUSSION WITH PT ABOUT MED REFILLS, NEW RX (BACTRIM DS X10 DAYS) AND WOUND CARE. PT TO FOLLOW UP WITH DR. NIETO AND THE [facility] WITHIN 7-10 DAYS. NEXT WEEK SHE IS TO CALL [facility] TO MAKE APPT. SHOW AND VERBALIZES UNDERSTANDING OF HOW TO DO WOUND CARE DAILY. PT HAD CONCERNS ABOUT WHERE SHE WILL STAY AFTER D/ C (HOMELESS), BUT SHE CALLED HER COUSIN IN THE [place] AND WILL STAY WITH HER FOR NOW. PLEASE SEE D/C INFORMATION BELOW. NO FURTHER ORDERS. -FOLLOW UP WITH DR. KOLB OR YOUR PRIMARY DOCTOR, DR. MILES, IN THE OFFICE IN 5-7 DAYS----CALL TO MAKE YOUR APPOINTMENT. -FOLLOW UP WITH DR. NIETO, THE HAND SURGEON, IN THE OFFICE IN 7-10 DAYS---CALL TODAY TO MAKE YOUR APPOINTMENT. -CONTINUE TAKING ALL OF YOUR MEDICATIONS USUAL, INCLUDING YOUR INSULIN. -NEW PRESCRIPTIONS INCLUDE: BACTRIM DS 1 TABLET BY MOUTH EVERY 12 HOURS (WITH BREAKFAST AND WITH DINNER) FOR A TOTAL OF 10 DAYS. MAKE SURE YOU TAKE ANTIBIOTIC EXACTLY PRESCRIBED, WITH FOOD, AND UNTIL COMPLETED. -CALL THE [facility] TO MAKE AN APPOINTMENT TO SEE THE WOUND CARE SPECIALISTS ONCE A DAY ON MONDAYS THROUGH FRIDAYS. -WHEN YOU CANNOT SEE THE WOUND CARE CENTER, YOU HAVE TO CLEAN YOUR THUMB WITH NORMAL SALINE AND BETADYNE, WRAP WITH DRESSING AND TAPE ONCE A DAY. Objective - Vital Signs/Intake and Output Vital Signs (last 24 hours): Temp Pulse Resp BP Pulse Ox 98.8 F 79 20 136/83 97 06/02/17 07:53 06/02/17 07:53 06/02/17 07:53 06/02/17 07:53 06/02/17 07:53 Intake and Output: 06/02/17 06/02/17 06:59 18:59 Intake Total 850 Balance 850 - Medications Medications: Current Medications Acetaminophen (Tylenol 325mg Tab) 650 mg PO Q4 PRN PRN Reason: Pain, Mild (1-3) Last Admin: 05/30/17 09:08 Dose: 650 mg Clonazepam (Klonopin) 1 mg PO HS PRN PRN Reason: Anxiety Enoxaparin Sodium (Lovenox) 40 mg SC DAILY [facility] Last Admin: 06/02/17 10:46 Dose: Not Given Hydromorphone HCl (Dilaudid) 0.5 mg IVP Q4H PRN PRN Reason: Pain, severe (8-10) Last Admin: 06/01/17 07:08 Dose: 0.5 mg Piperacillin Sod/Tazobactam Sod (Zosyn 3.375 Gm Iv Premix) 3.375 gm in 50 mls @ 100 mls/hr IVPB Q6H [facility] Last Admin: 06/02/17 10:55 Dose: Not Given Vancomycin/Sodium Chloride (Vancomycin 1 Gm/Ns 200 Ml) 1 gm in 200 mls @ 133.333 mls/hr IVPB Q12H [facility] Stop: 06/06/17 12:01 Last Admin: 06/02/17 11:59 Dose: Not Given Insulin Aspart (Novolog) 0 unit SC ACHS [facility] PRN Reason: Protocol Last Admin: 06/02/17 11:46 Dose: Not Given Insulin Aspart (Novolog Mix 70/30 (70/30 Units/Ml)) 16 units SC BID [facility] Last Admin: 06/02/17 09:17 Dose: 16 units Metformin HCl (Glucophage) 500 mg PO BID [facility] Last Admin: 06/02/17 09:16 Dose: 500 mg Oxycodone/Acetaminophen (Percocet 5/325 Mg Tab) 1 tab PO Q4H PRN PRN Reason: Pain, moderate (4-7) Stop: 06/03/17 08:06 Last Admin: 06/01/17 18:16 Dose: 1 tab Paroxetine HCl (Paxil) 10 mg PO DAILY [facility] Last Admin: 06/02/17 09:16 Dose: 10 mg Risperidone (Risperdal Tab) 1 mg PO HS [facility] Last Admin: 06/01/17 21:32 Dose: 1 mg Rosuvastatin Calcium (Crestor) 5 mg PO HS [facility] Last Admin: 06/01/17 21:32 Dose: 5 mg - Labs Labs: 06/02/17 06:16 06/02/17 06:16 PT 12.7 SECONDS (9.7-12.2) H 05/29/17 12:06 INR 1.1 05/29/17 12:06 APTT 24 SECONDS (21-34) 05/29/17 12:06
[2017-06-02] MEDS ORDERED: Influenza Vaccine 60 mcg/0.5 mL SYR (4YR UP) IM ONE (16:30)
[2017-06-02] MEDS ORDERED: Pneumococcal 23-Valent Vaccine IM ONE (16:30)
[2017-06-02 17:15] VITALS: BP 134/89; PULSE 87; TEMP 98.6; O2SAT 96
--- NOTE | 2017-06-02 22:59 | CP.PCM.DIS ---
Provider - Provider Date of Admission: 05/29/17 13:21 Attending physician: Yobani Jauregui MD Time Spent in preparation of Discharge (in minutes): 45 Diagnosis - Discharge Diagnosis (1) Cellulitis Status: Acute (2) Finger pulp abscess Status: Acute (3) Hyperglycemia due to type 2 diabetes mellitus Status: Acute (4) Anxiety Status: Acute Hospital Course - Lab Results Lab Results: Micro Results 05/29/17 11:55 Blood Blood Culture - Preliminary NO GROWTH AFTER 4 DAYS 05/29/17 11:25 Blood Blood Culture - Preliminary NO GROWTH AFTER 4 DAYS 05/31/17 07:01 Finger Gram Stain - Final 05/31/17 07:01 Finger Wound Culture - Final Klebsiella Pneumoniae Ssp Pneu 05/29/17 11:29 Urine Urine Culture - Final <10,000 CFU/ML. MULTIPLE SPECIES. PROBABLE CONTAMINATION. Most Recent Lab Values WBC 8.5 K/uL (4.8-10.8) 06/02/17 06:16 RBC 4.73 Mil/uL (3.80-5.20) 06/02/17 06:16 Hgb 14.9 g/dL (11.0-16.0) 06/02/17 06:16 Hct 44.1 % (34.0-47.0) 06/02/17 06:16 MCV 93.2 fL (81.0-99.0) 06/02/17 06:16 MCH 31.5 pg (27.0-31.0) H 06/02/17 06:16 MCHC 33.8 g/dL (33.0-37.0) 06/02/17 06:16 RDW 13.1 % (11.5-14.5) 06/02/17 06:16 Plt Count 284 K/uL (130-400) 06/02/17 06:16 MPV 8.3 fL (7.2-11.7) 06/02/17 06:16 Neut % (Auto) 64.8 % (50.0-75.0) 06/02/17 06:16 Lymph % (Auto) 22.8 % (20.0-40.0) 06/02/17 06:16 [place] % (Auto) 10.2 % (0.0-10.0) H 06/02/17 06:16 Eos % (Auto) 0.8 % (0.0-4.0) 06/02/17 06:16 Baso % (Auto) 1.4 % (0.0-2.0) 06/02/17 06:16 Neut # 5.5 K/uL (1.8-7.0) 06/02/17 06:16 Lymph # 1.9 K/uL (1.0-4.3) 06/02/17 06:16 [place] # 0.9 K/uL (0.0-0.8) H 06/02/17 06:16 Eos # 0.1 K/uL (0.0-0.7) 06/02/17 06:16 Baso # 0.1 K/uL (0.0-0.2) 06/02/17 06:16 Neutrophils % (Manual) 90 % (50-75) H 05/29/17 12:06 Band Neutrophils % 1 % (0-2) 05/29/17 12:06 Lymphocytes % (Manual) 5 % (20-40) L 05/29/17 12:06 Monocytes % (Manual) 4 % (0-10) 05/29/17 12:06 Platelet Estimate Normal (NORMAL) 05/29/17 12:06 Large Platelets Present 05/29/17 12:06 Polychromasia Slight 05/29/17 12:06 Anisocytosis (manual) Slight 05/29/17 12:06 PT 12.7 SECONDS (9.7-12.2) H 05/29/17 12:06 INR 1.1 05/29/17 12:06 APTT 24 SECONDS (21-34) 05/29/17 12:06 Sodium 131 mmol/L (132-148) L 06/02/17 06:16 Potassium 3.9 mmol/L (3.6-5.2) 06/02/17 06:16 Chloride 99 mmol/L (98-107) 06/02/17 06:16 Carbon Dioxide 25 mmol/L (22-30) 06/02/17 06:16 Anion Gap 11 (10-20) 06/02/17 06:16 BUN 13 mg/dL (7-17) 06/02/17 06:16 Creatinine 0.5 mg/dL (0.7-1.2) L 06/02/17 06:16 Est GFR ( Amer) > 60 06/02/17 06:16 Est GFR (Non-Af Amer) > 60 06/02/17 06:16 POC Glucose (mg/dL) 304 mg/dL (65-110) H 06/02/17 16:19 Random Glucose 246 mg/dL (65-105) H 06/02/17 06:16 Hemoglobin A1c 14.5 % (4.2-6.5) H 06/02/17 06:16 Calcium 8.5 mg/dl (8.6-10.4) L 06/02/17 06:16 Total Bilirubin 0.8 mg/dL (0.2-1.3) 05/29/17 12:06 AST 12 U/L (14-36) L 05/29/17 12:06 ALT 21 U/L (9-52) 05/29/17 12:06 Alkaline Phosphatase 104 U/L (38-126) 05/29/17 12:06 Total Creatine Kinase 55 U/L (30-135) 05/29/17 12:06 Total Protein 8.0 g/dL (6.3-8.3) 05/29/17 12:06 Albumin 4.5 g/dL (3.5-5.0) 05/29/17 12:06 Globulin 3.5 gm/dL (2.2-3.9) 05/29/17 12:06 Albumin/Globulin Ratio 1.3 (1.0-2.1) 05/29/17 12:06 Urine Color Yellow (YELLOW) 05/29/17 12:17 Urine Clarity Clear (Clear) 05/29/17 12:17 Urine pH 5.0 (5.0-8.0) 05/29/17 12:17 Ur Specific [place] 1.032 (1.003-1.030) H 05/29/17 12:17 Urine Protein 1+ mg/dL (NEGATIVE) H 05/29/17 12:17 Urine Glucose (UA) 3+ mg/dL (Normal) H 05/29/17 12:17 Urine Ketones 2+ mg/dL (NEGATIVE) H 05/29/17 12:17 Urine Blood Negative (NEGATIVE) 05/29/17 12:17 Urine Nitrate Negative (NEGATIVE) 05/29/17 12:17 Urine Bilirubin Negative (NEGATIVE) 05/29/17 12:17 Urine Urobilinogen Normal mg/dL (0.2-1.0) 05/29/17 12:17 Ur Leukocyte Esterase Neg Natty/uL (Negative) 05/29/17 12:17 Urine WBC (Auto) 2 /hpf (0-5) 05/29/17 12:17 Urine RBC (Auto) 3 /hpf (0-3) 05/29/17 12:17 Ur Squamous Epith Cells 1 /hpf (0-5) 05/29/17 12:17 Urine Bacteria Rare (<OCC) 05/29/17 12:17 - Hospital Course Hospital Course: PT CLEARED FOR D/C BY HAND SURGICAL TEAM PT WAS SEEN AND CLEANED WOUND TO RT THUMB, REDRESSED THUMB. CONFIRMED HOME MEDS WITH PT AND SHE DOES TAKE INSULIN AND HAS BEEN TAKING LANTUS 26 UNITS SQ Q12 AND IS COMFORTABLE GIVING HERSELF INSULIN. PR[employer]OTIONS ASSOCIATE HAD LENGTHY DISCUSSION WITH PT ABOUT MED REFILLS, NEW RX (BACTRIM DS X10 DAYS) AND WOUND CARE. PT TO FOLLOW UP WITH DR. NIETO AND THE [facility] WITHIN 7-10 DAYS. NEXT WEEK SHE IS TO CALL [facility] TO MAKE APPT. SHOW AND VERBALIZES UNDERSTANDING OF HOW TO DO WOUND CARE DAILY. PT HAD CONCERNS ABOUT WHERE SHE WILL STAY AFTER D/C (HOMELESS), BUT SHE CALLED HER COUSIN IN [place] AND WILL STAY WITH HER FOR NOW. PLEASE SEE D/C INFORMATION BELOW. NO FURTHER ORDERS. -FOLLOW UP WITH ME OR YOUR PRIMARY DOCTOR, DR. MILES, IN THE OFFICE IN 5-7 DAYS----CALL TO MAKE YOUR APPOINTMENT. -FOLLOW UP WITH DR. NIETO, THE HAND SURGEON, IN THE OFFICE IN 7-10 DAYS---CALL TODAY TO MAKE YOUR APPOINTMENT. -CONTINUE TAKING ALL OF YOUR MEDICATIONS USUAL, INCLUDING YOUR INSULIN. -NEW PRESCRIPTIONS INCLUDE: BACTRIM DS 1 TABLET BY MOUTH EVERY 12 HOURS (WITH BREAKFAST AND WITH DINNER) FOR A TOTAL OF 10 DAYS. MAKE SURE YOU TAKE ANTIBIOTIC EXACTLY PRESCRIBED, WITH FOOD, AND UNTIL COMPLETED. -CALL THE [facility] TO MAKE AN APPOINTMENT TO SEE THE WOUND CARE SPECIALISTS ONCE A DAY ON MONDAYS THROUGH FRIDAYS. -WHEN YOU CANNOT SEE THE WOUND CARE CENTER, YOU HAVE TO CLEAN YOUR THUMB WITH NORMAL SALINE AND BETADYNE, WRAP WITH DRESSING AND TAPE ONCE A DAY. Discharge Exam - Head Exam Head Exam: NORMAL INSPECTION - Eye Exam Eye Exam: EOMI, Normal appearance, PERRL Pupil Exam: NORMAL ACCOMODATION, PERRL - ENT Exam ENT Exam: Mucous Membranes Moist - Respiratory Exam Respiratory Exam: Clear to PA & Lateral, NORMAL BREATHING PATTERN - Cardiovascular Exam Cardiovascular Exam: REGULAR RHYTHM, +S1, +S2 - GI/Abdominal Exam GI & Abdominal Exam: Normal Bowel Sounds - Skin Skin Exam: Dry, Intact, Normal Color, Warm Discharge Plan - Discharge Medications Prescriptions: Sulfamethoxazole/Trimethoprim [Bactrim DS 800 mg-160 mg] 1 tab PO Q12 #20 tab metFORMIN [glucOPHAGE] 500 mg PO BID #60 tab clonazePAM [Klonopin] 1 mg PO HS PRN #30 tab PRN Reason: Anxiety Insulin Glargine,Hum.rec.anlog [Lantus Solostar] 26 units SUBCUT Q12 #1 insuln.pen PARoxetine [Paxil] 10 mg PO DAILY #30 tab risperiDONE [RisperDAL Tab] 1 mg PO HS #30 tab Simvastatin 20 mg PO DAILY #30 tablet - Follow Up Plan Condition: STABLE Disposition: HOME/ ROUTINE Instructions: Sulfamethoxazole/Trimethoprim (By mouth), Clonazepam (By mouth), Paroxetine (By mouth), Risperidone (By mouth), Simvastatin (By mouth), Metformin (By mouth), Insulin Glargine (By injection), Cellulitis (DC), Diabetic Hyperglycemia (DC) Additional Instructions: -FOLLOW UP WITH DR. JAUREGUI OR YOUR PRIMARY DOCTOR, DR. MILES, IN THE OFFICE IN 5-7 DAYS----CALL TO MAKE YOUR APPOINTMENT. -FOLLOW UP WITH DR. NIETO, THE HAND SURGEON, IN THE OFFICE IN 7-10 DAYS---CALL TODAY TO MAKE YOUR APPOINTMENT. -CONTINUE TAKING ALL OF YOUR MEDICATIONS USUAL, INCLUDING YOUR INSULIN. -NEW PRESCRIPTIONS INCLUDE: BACTRIM DS 1 TABLET BY MOUTH EVERY 12 HOURS (WITH BREAKFAST AND WITH DINNER) FOR A TOTAL OF 10 DAYS. MAKE SURE YOU TAKE ANTIBIOTIC EXACTLY PRESCRIBED, WITH FOOD, AND UNTIL COMPLETED. -CALL THE [facility] ([address] [place], [place] [id number]; PHONE NUMBER [phone]). TO MAKE AN APPOINTMENT TO SEE THE WOUND CARE SPECIALISTS ONCE A DAY ON MONDAYS THROUGH FRIDAYS. -WHEN YOU CANNOT SEE THE WOUND CARE CENTER, YOU HAVE TO CLEAN YOUR THUMB WITH NORMAL SALINE AND BETADYNE, WRAP WITH DRESSING AND TAPE ONCE A DAY. Referrals: Yobani Jauregui MD [Staff Provider] - Benjamin Nieto MD [Staff Provider] -
== END 2017-06-02 17:55 | disposition home or self-care (01) | DRG 603 ==
LOC: C.ER 11:02 → C.9E 13:21 → C.3T 15:20
PROVIDERS: ADMIT Internal Medicine; ATTEND Internal Medicine
PROC: 0H9FXZZ Drainage of Right Hand Skin, External Approach (ICD-10-PCS; principal; 2017-05-29)
DX: L03.011 Cellulitis of right finger (principal); E11.65 Type 2 diabetes mellitus with hyperglycemia; L02.511 Cutaneous abscess of right hand; Z59.0 Homelessness; Z79.4 Long term (current) use of insulin; I10 Essential (primary) hypertension; F20.9 Schizophrenia, unspecified; F17.200 Nicotine dependence, unspecified, uncomplicated; E78.00 Pure hypercholesterolemia, unspecified